=== PATIENT | male | born 1985 | race African-American/Black ===

== ENCOUNTER 2017-08-04 15:57 | Emergency (ER) | payer BC ==
[~2017-08-04] VITALS: Ht 182.9 cm; Wt 68.0 kg
[2017-08-04 16:15] VITALS: BP 121/77; PULSE 80; RESP 16; TEMP 100.5; O2SAT 100
[2017-08-04] MEDS ORDERED: PENICILLIN G BENZATHINE 1,200,000 UNITS/2 ML SYRINGE IM ONE (16:45)
[2017-08-04] MEDS ORDERED: ACETAMINOPHEN 325 MG TAB PO ONE (16:45)
--- NOTE | 2017-08-04 16:48 | PD ---
HPI Chief Complaint: ENT Complaint Time Seen by Provider: 16:37 Travel History International Travel<30 days: No Contact w/Intl Traveler<30days: No Traveled to known affect area: No History of Present Illness HPI The patient is a 32-year-old [place] male who presents to the emergency department for sore throat of 2 days' duration. The patient complains of throat pain, pain with swallowing, anterior cervical lymphadenopathy, and fever. The patient states he was exposed to a significant other who had strep throat recently diagnosed. The patient denies any cough, nausea, vomiting, or abdominal pain. He denies any specific myalgias or arthralgias. He denies any rash. Symptoms are moderate, possibly exacerbated after being exposed to strep pharyngitis, and there are no current alleviating factors. He has been taking NyQuil with minimal relief. PFSH Past Medical History Medical History: Denies Significant Hx Diminished Hearing: No Immunizations Current: No Tetanus Vaccination: Unknown Influenza Vaccination: No Past Surgical History Surgical History: No Previous Surgery Social History Alcohol Use: No Tobacco Use: Yes (1 PK) Substance Use: No Allergies-Medications (Allergen,Severity, Reaction): Coded Allergies: No Known Allergies (Unverified , 08/04/17) Reported Meds & Prescriptions Reported Meds & Active Scripts Active No Active Prescriptions or Reported Medications Review of Systems General / Constitutional: Positive: Fever HENT: Positive: Sore Throat, Neck Pain, No: Earache Cardiovascular: No: Chest Pain or Discomfort Respiratory: No: Cough Gastrointestinal: No: Nausea, Vomiting, Abdominal Pain Musculoskeletal: No: Myalgias, Arthralgias Skin: No Rash Physical Exam Narrative GENERAL: Awake, alert, pleasant 32-year-old male who appears his stated age and is in no acute respiratory distress. SKIN: Focused skin assessment warm/dry. HEAD: Atraumatic. Normocephalic. EYES: Pupils equal and round. No scleral icterus. No injection or drainage. ENT: No nasal bleeding or discharge. Oropharynx reveals erythema with enlarged tonsils with bilateral white exudate. NECK: Trachea midline. No JVD. Anterior cervical lymphadenopathy noted. CARDIOVASCULAR: Regular rate and rhythm. No murmur appreciated. RESPIRATORY: No accessory muscle use. Clear to auscultation. Breath sounds equal bilaterally. GASTROINTESTINAL: Abdomen soft, non-tender, nondistended. No rebound tenderness. MUSCULOSKELETAL: No obvious deformities. No clubbing. No cyanosis. No edema. NEUROLOGICAL: Awake and alert. No obvious cranial nerve deficits. Motor grossly within normal limits. Normal speech. PSYCHIATRIC: Appropriate mood and affect; insight and judgment normal. Data Data Last Documented VS Vital Signs Date Time Temp Pulse Resp B/P (MAP) Pulse Ox O2 Delivery O2 Flow Rate FiO2 08/04/17 16:15 100.5 80 16 121/77 (92) 100 Orders Orders Penicillin G Benzathine Inj (Bicillin L- (08/04/17 16:45) [facility] Medical Decision Making Medical Screen Exam Complete: Yes Emergency Medical Condition: Yes Medical Record Reviewed: Yes Differential Diagnosis differential diagnosis includes strep pharyngitis, viral pharyngitis, mononucleosis, viral syndrome, URI. Narrative Course The patient's port score is 4. Therefore, no culture was obtained. The patient was given a choice of Bicillin 1.2 million units IM versus Pen-Vee K 4 times a day for 10 days. The patient option for an IM injection. Therefore, the patient received Bicillin 1.2 million units LA IM. The patient was also administered Tylenol 650 mg orally. He is advised to alternate Tylenol and Motrin for pain and fever. Plenty of handwashing and no sharing drinks. Work excuse for one day. Follow-up with his primary physician. Diagnosis Primary Impression: Strep pharyngitis Patient Instructions: General Instructions Additional Instructions: Alternate Tylenol and Motrin for pain and fever. Diet as tolerated. Work excuse for one day. Follow-up with your primary physician. Scripts No Active Prescriptions or Reported Meds Disposition: 01 DISCHARGE HOME Condition: Stable Bhupinder Heredia MD Aug 04, 2017 16:48
== END 2017-08-04 17:32 | disposition home or self-care (01) ==
LOC: PHEFT 15:57
DX: J02.0 Streptococcal pharyngitis (principal); F17.200 Nicotine dependence, unspecified, uncomplicated
CPT/HCPCS: 96372; 99284; J0561